=== PATIENT | female | born 1940 | race Caucasian/White ===

== ENCOUNTER 2020-10-22 09:07 | Inpatient (IN) | payer OTHER ==
[~2020-10-22] VITALS: Ht 167.6 cm; Wt 83.0 kg
[2020-10-22 09:17] VITALS: BP 112/78
[2020-10-22] MEDS ORDERED: NORVASC 2.5 MG2.5 M1 GT (09:33)
[2020-10-22] MEDS ORDERED: LASIX 40 MG TAB40 MG (09:34)
[2020-10-22] MEDS ORDERED: ELIQUIS5 MG PO (09:34)
[2020-10-22] MEDS ORDERED: COZAAR 25 MG TA25 M2 PO (09:35)
[2020-10-22] MEDS ORDERED: DESYREL150 MG PO (09:35)
[2020-10-22] MEDS ORDERED: ASA81BEC PO (09:35)
[2020-10-22] MEDS ORDERED: LIPITOR 20 MG T20 M1 PO (09:35)
[2020-10-22] MEDS ORDERED: TYLENOL325 MG PO (09:36)
[2020-10-22] MEDS ORDERED: LEVEMIR100 UNIT/2 SUBQ (09:36)
[2020-10-22 10:58] LABS: ABSOLUTE NEUTROPHILS 10.8 thou/uL (1.4-8.2); BASOPHILS 0.1 % (0.0-2.0); EOSINOPHILS 0.6 % (0.0-3.0); HEMATOCRIT 39.9 % (37.0-47.0); HEMOGLOBIN 12.8 gm/dL (12.0-15.0); LYMPHOCYTES 7.6 % (24.0-44.0); MCH 27.8 pg (26.0-34.0); MCHC 32.1 g/dL (28.0-37.0); MCV 86.8 fL (80.0-100.0); MONOCYTES 5.9 % (1.0-8.0); PLATELET COUNT 167 thou/uL (150-400); POLYS 85.8 % (36.0-66.0); RDW 13.1 % (10.5-14.5); WBC 12.6 thou/uL (4.0-11.0)
[2020-10-22 11:04] LABS: CALCIUM 9.5 mg/dL (8.5-10.1); CREATININE 1.4 mg/dL (0.6-1.0); POTASSIUM 3.9 mmol/L (3.5-5.1)
[2020-10-22 11:10] LABS: ALBUMIN 3.4 g/dL (3.4-5.0); TOTAL BILIRUBIN 0.7 mg/dL (0.2-1.0); TOTAL PROTEIN 7.4 g/dL (6.4-8.2)
[2020-10-22] MEDS ORDERED: NOVOLOG FL100 UNIT/M SUBQ (11:30)
[2020-10-22 12:40] LABS: URINE BILIRUBIN NEGATIVE (Negative); URINE BLOOD 1+ (Negative); URINE CLARITY CLEAR; URINE COLOR YELLOW; URINE GLUCOSE-RANDOM* NEGATIVE (Negative); URINE KETONES NEGATIVE (Negative); URINE LEUKOCYTES-REFLEX NEGATIVE (Negative); URINE NITRITE-REFLEX NEGATIVE (Negative); URINE PROTEIN (DIPSTICK) NEGATIVE (Negative); URINE UROBILINOGEN 0.2 E.U./dl (0.2-1.0)
--- NOTE | 2020-10-22 12:46 | EKG ---
[place] [address] [address] [facility] [employer] [place] [address] ELECTROCARDIOGRAM REPORT Name: CHAD ESPINOZA Room #: 170-15 ADM IN M.R.#: [id number] Admission: 10/22/20 Attend Phys: Stanley Brumfield MD Discharge: Date of : 39 Report #: [id number] [facility] ED Test Date: 2020-10-22 Test Time: 12:12:56 Pat Name: CHAD ESPINOZA Department: Room: 170 Gender: F Network Systems Analyst: jarret : 1940 Requested By: Arian Alvarez Order Number: [id number] MD: Vitor Szymanski Measurements Intervals [place]acho Rate: 95 P: 41 SD: 189 QRS: -43 QRSD: 95 T: 158 QT: 364 QTc: 458 Interpretive Statements Sinus rhythm Left axis deviation Low voltage, precordial leads Probable anteroseptal infarct, old Nonspecific T abnormalities, lateral leads No previous ECG available for comparison Electronically Signed On 10-22-2020 12:46:31 NEEDLE FELT MAKING MACHINE OPERATOR by Vitor Szymanski [email or web address] <ELECTRONICALLY SIGNED> By: Vitor Szymanski MD, [facility] 10/22/20 1246 1212 11 Vitor Szymanski MD, FAC /EPI
[2020-10-22 12:55] LABS: CRYSTALS None Seen /LPF (None Seen); HYALINE CASTS 0-3 Few /LPF (None Seen); SQUAMOUS 0-3 Few /LPF (0-3)
[2020-10-22 12:57] LABS: BACTERIA-REFLEX 1-9 Few /HPF (None Seen); URINE RBC 3-10 Few /HPF (0-2); URINE WBC-REFLEX None Seen /HPF (0-5)
[2020-10-22 14:08] LABS: FOLIC ACID 19.9 ng/mL (8.6-58.9)
--- NOTE | 2020-10-22 14:55 | NUR ---
80-year-old female who was brought to [facility] via EMS status post fall. Patient is alert to self, history with advanced dementia. Daughter at bedside provided LASTING ROOM MACHINE OPERATOR with hospitalist group Per daughter patient with past medical history known for A. fib, hypertension, hyperlipidemia, CAD status post stent, history of vascular dementia history of CVAs, history of retinopathy. Daughter reports patient fell out of bed last night. Daughter reports patient has been complaining of left hip pain, unable to walk. Bilateral hip x-ray reveals: "Acute subcapital left femoral neck fracture". Daughter Candy Abreu is listed as a contact with phone number is [phone]. Patient was admitted for Left Hip Fracture where Dr. Johnson has been consulted. NOTE: patient has a history of multiple strokes with right sided weakness. Along with, Acute on chronic renal failure, history of A-Fib, HTN, Diabetes, Elevated LFT's, CHF, CAD status post cardiac stent, dementia, GI/DVT prophylaxis and per daughter patient lives daughter and is a FULL CODE. Attempted to speak with daughter at [phone] to no avail as number went directly to voicemail. CM will follow for discharge needs.
[2020-10-22 18:23] VITALS: BP 123/57
[2020-10-22 20:00] VITALS: BP 115/54
[2020-10-22 21:15] VITALS: BP 154/66
--- NOTE | 2020-10-23 01:00 | NUR ---
PT ADMITTED WITH L HIP FRACTURE. SHE IS ALERT TO SELF, SOME DELAY IN ANSWERING QUESTIONS. PT WITH SOME EXTREME ANXIETY AND PAIN. FENTANYL GIVEN WELL IVF STARTED HONG IN PLACE. PT IS NPO FOR SURGERY IN THE AM..
[2020-10-23 06:09] LABS: ABSOLUTE NEUTROPHILS 6.4 thou/uL (1.4-8.2); BASOPHILS 0.1 % (0.0-2.0); EOSINOPHILS 3.8 % (0.0-3.0); HEMATOCRIT 35.7 % (37.0-47.0); HEMOGLOBIN 11.4 gm/dL (12.0-15.0); MCH 28.2 pg (26.0-34.0); MCV 88.1 fL (80.0-100.0); MONOCYTES 5.4 % (1.0-8.0); PLATELET COUNT 142 thou/uL (150-400); POLYS 78.7 % (36.0-66.0); RBC 4.05 mil/uL (4.20-5.00); RDW 13.1 % (10.5-14.5); WBC 8.1 thou/uL (4.0-11.0)
[2020-10-23 06:29] LABS: CALCIUM 8.6 mg/dL (8.5-10.1); MAGNESIUM 1.7 mg/dL (1.8-2.4); POTASSIUM 3.9 mmol/L (3.5-5.1)
[2020-10-23 08:44] VITALS: BP 155/73
--- NOTE | 2020-10-23 09:02 | NUR ---
ASSUMED CARE OF PATIENT AT 0645 PT ALERT BUT IN PAIN GIVEN PRN IV PAIN MED AT THIS TIME 0903. PT REMAINS NPO FOR LEFT HIP FRACTURE. IV FLUIDS INFUSING ORDERED.
[2020-10-23 17:43] VITALS: BP 123/63
[2020-10-23 20:38] VITALS: BP 126/51
[2020-10-24 03:30] VITALS: BP 129/44
--- NOTE | 2020-10-24 04:30 | NUR ---
PT HAS ALOT OF ANXIETY EXARCEBATED BY FORGETFULNESS. LOTS OF ASSURANCE PROVIDED. GETTING TYLENOL AND FENTANYL IVP FOR PAIN. PT REFUSES ANY SNACKS OFFERED, SHE IS DRINKING WATER AND TAKES MEDS WITH NO DIFFICULTIES.L HIP WITH BULK DRSG WELL ICE DOT. SCDS TO BLE.LEFT FOOT WITH GOOD CSM.PT ASSISTED TO REPOSITION EVERY SO OFTEN WHILE AWAKE. VSS. AFEBRILE. OXYGEN 11/25-2L PLACED FOR COMFORT BUT MOSTLY SHE WILL NOT KEEP IT ON.FALL PREC IN PLACE.CALL LIGHT WITHIN REACH.
[2020-10-24 05:59] LABS: HEMATOCRIT 26.9 % (37.0-47.0); MCH 28.7 pg (26.0-34.0); MCHC 32.4 g/dL (28.0-37.0); MCV 88.5 fL (80.0-100.0); RBC 3.04 mil/uL (4.20-5.00); RDW 13.4 % (10.5-14.5); WBC 8.3 thou/uL (4.0-11.0)
[2020-10-24 06:00] LABS: CALCIUM 7.7 mg/dL (8.5-10.1); CREATININE 1.3 mg/dL (0.6-1.0); POTASSIUM 4.2 mmol/L (3.5-5.1)
[2020-10-24 06:10] LABS: HEMOGLOBIN 8.7 gm/dL (12.0-15.0)
[2020-10-24 08:08] VITALS: BP 137/41
--- NOTE | 2020-10-24 15:04 | NUR ---
ON-GOING ASSESSMENT: MARIZOL REVIEWED CHART AND SPOKE WITH PTS DAUGHTER JAKI WHO SHE LIVES WITH. SHE REPORTS THAT PT HAS BEEN TO [facility] THE [facility]. SHE REPORTS PT RECEIVED BETTER CARE AT [facility] [place] AND THEY PREFER SHE GO THERE IF NEEDING SNF AND REQUEST REFERRAL TO BE SENT. CM FAXED REFERRAL. DAUGHTER ALSO REPORTS STARTING 10/25 THAT PT WILL NO LONGER HAVE [facility] AND WILL HAVE [facility] POLICY#[id number]. MARIZOL NOTIFIED LIASON AT [facility] OF THIS CHANGE AND THEY ACCEPT [facility]. SHE THINKS THERE IS STILL A WAIVER WHERE THEY WOULD NOT HAVE TO RECEIVE AUTH PRIOR TO ACCEPTING PT. PT HAD NEGATIVE COVID TEST ON 10/22. AWAITING FURTHER INPUT FROM [facility] AT THIS TIME. Luis HAS ALSO BEEN CONSULTED TO SEE PT. WILL AWAIT FURTHER INPUT FROM Luis AND [facility].
--- NOTE | 2020-10-24 15:31 | NUR ---
SPOKE WITH LUZ IN ADM AT [facility] SHE CAN ACCEPT BUT WILL NOT HAVE A BED TIL EARLY NEXT WEEK SHE WILL F/U WITH ME ON WEDNESDAY.
--- NOTE | 2020-10-24 15:42 | NUR ---
ON-GOING ASSESSMENT: CM REVIEWED CHART. [facility] HAS BEEN CONSULTED TO SEE PATIENT AND ARE EVALUATING. PT IS IN PAIN AND UNABLE TO PARTICIPATE MUCH WITH THERAPY AND [facility] STATING THEY WILL FOLLOW UP WITH HER TOMORROW BUT UNSURE SHE WILL BE APPROPRIATE FOR [facility]. CM SPOKE WITH DAUGHTER ABOUT POSSIBLE NEED FOR SNF OPTION AND THEY PREFER [facility]. [facility] RECEIVED REFERRAL AND STATING CLINICALLY THEY HAVE ACCEPTED HER BUT LIKELY WILL NOT HAVE A BED UNTIL NEXT WEEK AND ANTOINETTE ONE UNTIL THEY CHECK BED STATUS ON WEDNESDAY. CM NOTIFIED PTS DAUGHTER AND ALSO PROVIDED HER WITH A SNF LIST OF OTHER OPTIONS. DAUGHTER STATING IF SHE CANNOT GO TO [facility] SHE REALLY PREFERS [facility] SINCE THEY HAVE BEEN THERE BEFORE BUT SHE WILL REVIEW SNF LIST. CM WILL CONTINUE TO FOLLOW.
[2020-10-24 16:12] VITALS: BP 144/40
[2020-10-24 19:34] VITALS: BP 157/65
--- NOTE | 2020-10-25 03:06 | NUR ---
ASSUMED CARE OF PT AT 1900. PT IS A/O X1 AND IS UP WITH ASSISTANCE TO THE BSC. PT C/O SEVERE PAIN TO LEFT HIP. SCREAMS OUT AND IS VERY RESTLESS. RATES PAIN A 10. DRSG TO LEFT HIP CHANGED THIS EVENING PT HAD STARTED TO REMOVE THE DRSG AND IT WAS NOT SECURED TO THE LEG. AT THIS TIME IT IS C/D/I. PT IS CONFUSED AND HAS ON MULTIPLE OCCASIONS ASKED TO BE PUT BACK INTO HER OLD ROOM. EDUCATED PT TO PLACE AND SITUATION. PAIN MEDICATION GIVEN PRESCRIBED. PILLOW PLACED BETWEEN LEGS PT TRIES CROSSING HER LEGS. AT THIS TIME PT IS LYING IN HER BED AND APPEARS TO BE SLEEPING. FALL PRECAUTIONS IMPLEMENTED. CALL LIGHT IS WITHIN REACH.
[2020-10-25 05:54] LABS: HEMATOCRIT 24.7 % (37.0-47.0); HEMOGLOBIN 8.1 gm/dL (12.0-15.0); MCH 28.5 pg (26.0-34.0); MCHC 32.7 g/dL (28.0-37.0); RBC 2.84 mil/uL (4.20-5.00); RDW 13.3 % (10.5-14.5); WBC 7.4 thou/uL (4.0-11.0)
[2020-10-25 08:50] VITALS: BP 135/66
[2020-10-25 16:45] VITALS: BP 123/55
--- NOTE | 2020-10-25 18:30 | NUR ---
PT ASSESSED AT START OF SHIFT. PT PAIN IS DOING BETTER. TAKING EXTRA STRENGTH TYLENOL. MAX ASSIST W/ THERAPY TO TRANSFER TO CHAIR BUT SHE DID HELP SOME. MENTATION CLEARED MORE THROUGHOUT THE DAY. ATE AND FED SELF. INCONTINENT OF URINE. DTR IN TO VISIT.
[2020-10-25 19:14] VITALS: BP 102/38
[2020-10-26 03:49] VITALS: BP 118/50
[2020-10-26 04:46] LABS: HEMATOCRIT 24.2 % (37.0-47.0); HEMOGLOBIN 7.8 gm/dL (12.0-15.0); MCH 28.6 pg (26.0-34.0); MCHC 32.3 g/dL (28.0-37.0); MCV 88.4 fL (80.0-100.0); RBC 2.74 mil/uL (4.20-5.00); RDW 13.6 % (10.5-14.5); WBC 7.6 thou/uL (4.0-11.0)
--- NOTE | 2020-10-26 05:15 | NUR ---
ASSUMED PT CARE FROM ESTEFANY (DAY RN). PT IS ALERT TO SELF. PT HAS MOMENTS OF CONFUSION. PT IS ON ROOM AIR. WHEN ASKING WHAT THE PTS PAIN LEVEL IS SHE STATES 10. PT IS INCONTINENT. PT YELLS IN PAIN WHEN IN BED. SCHEDULED MEDICATION IS TOLERATED. IV PAIN MEDICATION ADMINISTERED. PT DOES NOT CALL OUT APPROPRIATELY. PT DRESSING TO HER HIP IS C/D/I. WILL CONTINUE TO MONITOR.
[2020-10-26 08:19] VITALS: BP 122/76
[2020-10-26 15:59] VITALS: BP 146/56
--- NOTE | 2020-10-26 19:51 | NUR ---
PT CARE ASSUMED AT 0700. A&Ox4 WITH EPISODES OF CONFUSION. SCHEDULED TYLENOL ON BOARD. DEMNETIA HISTORY. DRESSING DRY AND INTACT ON L. HIP. SCD'S/TEDHOSES IN PLACE. MAX ASSIST FROM BED TO CHAIR. UP IN THE RECLINER MOST OF THE DAY. ACHS WITH LOW SLIDING SCALE ON BOARD. PENDING DC TO [facility] ON WEDNESDAY. PT IS A SETUP FOR ALL MEALS. FALL PROTOCOL IN PLACE. CALL LIGHT IN REACH. WILL CONTINUE TO MONITOR.
[2020-10-26 20:43] VITALS: BP 162/64
--- NOTE | 2020-10-27 00:32 | NUR ---
PT C/O PAIN ON HER L HI,MANAGED WITH MED.DRSG ON HER L HIP WITH DRY SEROUSANGUINEOUS DRAINAGE.INCISION CLEANED AND DRSG CHANGE.BRUSING NOTED AROUND THE INCISION AREA.PT CONFUSED YELLS OUT FOR HELP.PT ENCOURAGED TO USE HER CALL LIGHT.PT REPOSITIONED WHILE IN BED.PT MAX ASSIST,BEDPAN IN USE.PT SLEEPING ON HER BED AT THIS TIME.CALL LIGHT WITHIN REACH.
[2020-10-27 08:10] VITALS: BP 157/90
[2020-10-27 15:35] VITALS: BP 156/60
--- NOTE | 2020-10-27 19:35 | NUR ---
PATIENT CONT TO HAVE SEVERE PAIN AT TIMES. NOT EASILY CONTROLLED. PT REASSURED AND THOUGHT RELAXATION TECHNIQUES. NOW SLEEPING. WILL CONT WITH PLAN OF CARE.
[2020-10-27 20:45] VITALS: BP 147/56
--- NOTE | 2020-10-28 05:54 | NUR ---
PT LYING IN BED. XTRA STRENGHT TYLENOL PROVIDING PAIN RELIEF. EXT FEMALE CATH WORKING QUITE WELL. RESTING COMFORTABLY. NO NEEDS VOICED. CALL LIGHT WITHIN REACH. FREQUENT OBSERVATION.
[2020-10-28 06:14] LABS: CALCIUM 8.4 mg/dL (8.5-10.1); CREATININE 0.8 mg/dL (0.6-1.0); MAGNESIUM 1.7 mg/dL (1.8-2.4); PHOSPHORUS 2.3 mg/dL (2.5-4.9); POTASSIUM 3.9 mmol/L (3.5-5.1)
[2020-10-28 07:55] VITALS: BP 148/75
[2020-10-28 08:31] LABS: HEMOGLOBIN 8.5 gm/dL (12.0-15.0); MCH 28.9 pg (26.0-34.0); MCHC 32.7 g/dL (28.0-37.0); MCV 88.4 fL (80.0-100.0); RBC 2.94 mil/uL (4.20-5.00); RDW 13.5 % (10.5-14.5); WBC 5.6 thou/uL (4.0-11.0)
--- NOTE | 2020-10-28 09:26 | NUR ---
ON-GOING ASSESSMENT: CM REVIEWED CHART. [facility] STATED PT IS MORE APPROPRIATE FOR SNF. CM SPOKE WITH PATIENTS DAUGHTER JAKI AND THEY [facility]. CM REACHED OUT TO LIASON AT [facility] TO CHECK BED AVAILABILITY TODAY AND AWAITING A CALL BACK AT THIS TIME.
--- NOTE | 2020-10-28 11:32 | NUR ---
Assumed care of pt at 0700. Pt confused but follow commands. C/o pain and nausea. Prn meds administered. Dressing c/d/i. Family at bedside. Awaiting placement. Call light within reach. Will continue to monitor.
[2020-10-28 16:00] VITALS: BP 125/49
[2020-10-28 19:19] VITALS: BP 130/48
--- NOTE | 2020-10-29 00:05 | NUR ---
PT C/O PAIN AT START OF SHIFT,MANAGED WITH MED.DRSG TO HER L HIP CHANGED,SMALL DRAINAGE NOTED.PT REPOSITIONED WHILE IN BED.PT REF EXTERNAL CATH AT THIS TIME,REMOVED PER PT'S REQUEST.PT RESTING ON HER BED AT THIS TIME.CALL LIGHT WITHIN REACH.
[2020-10-29 04:57] VITALS: BP 121/41
[2020-10-29 07:55] VITALS: BP 143/58
--- NOTE | 2020-10-29 09:29 | NUR ---
ON-GOING ASSESSMENT: CM FAXED UPDATED PT/OT/PROGRESS NOTES/MEDS TO [facility] AND AWAITING AUTH FOR SNF AT THIS TIME.
--- NOTE | 2020-10-29 09:52 | NUR ---
Assumed care of pt at 0700. Pt confused but follows commands. Dressing c/d/i. Pain controlled. Possible discharge to skilled facility today. Fall precautions in place. Call light within reach. Will continue to monitor.
--- NOTE | 2020-10-29 13:42 | O ---
[facility] [place] [address] OPERATIVE REPORT Name: CHAD ESPINOZA Room #: 446-P ADM IN M.R.#: [id number] Admission: 10/22/20 Attend Phys: Stanley Brumfield MD Discharge: Date of : 39 Report #: [id number] THIS REPORT FOR: cc: Jenaro Scanlon MD, Usman MD McCabe,Jerald Díaz MD ~ DATE OF SERVICE: 10/23/2020 SERVICE: Orthopedics. FACILITY: [facility]. SURGEON: Jerald Johnson MD REFRIGERATION SUPERVISOR: None. PREOPERATIVE DIAGNOSIS: Valgus impacted left femoral neck fracture. POSTOPERATIVE DIAGNOSIS: Valgus impacted left femoral neck fracture. PROCEDURE: Closed reduction and percutaneous pinning, left femoral neck fracture. COMPLICATIONS: None. DRAINS: None. SPECIMENS: None. ANESTHESIA: General with LMA. FINDINGS: Synthes 80 mm cannulated screws x 3. HISTORY: The patient is an 80-year-old female who sustained a same level fall and was brought to the Emergency Room where she was diagnosed with a valgus impacted femoral neck fracture. It had an appearance consistent with a structure stable injury pattern and was indicated for a screw fixation. Risks, benefits, alternatives, and indication of surgery discussed with her and her daughter who gave full informed consent. Risks include but not limited to pain, bleeding, infection, injury to nerves or blood vessels, malunion, nonunion, need for further surgery as well as complications related to anesthesia up to and including mortality. PROCEDURE IN DETAIL: After left lower extremity was correctly identified in the preoperative holding area as the operative extremity, the patient was taken to [facility] [address] [place] [address] OPERATIVE REPORT Name: CHAD ESPINOZA Room #: 446-P ADM IN M.R.#: [id number] Admission: 10/22/20 Attend Phys: Stanley Brumfield MD Discharge: Date of : 39 Report #: [id number] the operating room where general anesthesia was induced without complication. She was padded appropriately. Prophylactic antibiotics were administered at appropriate time. Left leg was prepped and draped in standard sterile fashion. Time-out procedure was performed. We had identified the proper AP and lateral x-rays prior to prepping and draping under C-arm fluoroscopy. A 1-inch incision was made based over the lateral aspect of the hip. Dissection was taken down to the femur and then using C-arm on multiple planes, the screws were placed in the femoral neck. The first was placed along the inferior cortex. A second along the posterior cortex and then the third along the anterior cortex. The screws were placed in a divergent pattern in an inverted triangle fashion. Overall, she had good bone quality and good screw purchase. The inferior and posterior screws utilized a short threaded screws to allow for compression across the fracture and then the more proximal screw utilized a long thread screw configuration in order to obtain the best bony purchase. Final x-rays were taken. The wound was irrigated and then closed with 0 Vicryl followed by 2-0 Vicryl and ashu. Sterile dressing was applied. The patient was awakened from anesthesia and taken to recovery room in stable condition. There were no complications. All counts were correct. <ELECTRONICALLY SIGNED> By: Jerald Johnson MD 10/29/20 1342 1607 1805 Jerald Johnson MD /nt
[2020-10-29 16:03] VITALS: BP 133/52
[2020-10-29 20:09] VITALS: BP 114/59
--- NOTE | 2020-10-30 03:36 | NUR ---
ASSUMED PT CARE FROM ZAKIYA (DAY RN). PT IS ALERT TO SELF AND SITUATION. PT IS CONFUSED. PT HAS A RIGHT FORARM SALINE LOCKED AND COBANDED. PT HAS A DRESSING ON HER LEFT HIP. DRESSING IS C/D/I. PT STATES THAT SHE IS NOT IN PAIN UNLESS MOVED. I ADMINISTERED ORAL PAIN MEDICATION. PT TOLERATES ORAL MEDICATION FINE. PT IS INCONTINENT. AT THE BEGINING OF THE SHIFT PT HAD WIC IN PLACE BUT REMOVED IT AND SAID IT HURTS SO SHE WOULD PREFER TO NOT USE IT. PT DOES NOT CALL OUT APPROPRIATELTY. FREQUENT CHECKS PERFORMED. WILL CONTINUE TO MONITOR.
[2020-10-30 07:35] VITALS: BP 140/55
--- NOTE | 2020-10-30 09:07 | NUR ---
ASSUMED CARE AT 0700. PT COMPLAINS OF PAIN AND PAIN MEDICATION WAS GIVEN. PT WAS SLEEPING AFTER GIVEN PAIN MEDICATION. IV IS INTACT AND SHOWS NO SIGNS OF REDNESS OR SWELLING. ICE PACK APPLIED ON LEFT HIP. BRITANY/SCD HOSE ARE IN PLACE. SOT ABD. BULDGE IN THE MIDDLE OF ABD. BRUSIES ON LEGS. LIDOCAINE PATCH IS APPLIED TO LEFT LEG. BSG WNL. VSS. DRESSING ON LEFT HIP IS DRY, CLEAN, AND INTACT. IV ON RIGHT FA IS WRAPPED DUE TO PT PICK ON THE IV. INCONTINENT THEREFORE I HAVE APPLIED FEMALE EXTERNAL CATHETHER TO PT AND EDUCATE PT ON THE IMPORTANCE TO LEAVE IT ALONE. PT IS A &O X1.
--- NOTE | 2020-10-30 09:36 | NUR ---
ON-GOING ASSESSMENT: CM REVIEWED CHART. MARIZOL REACHED OUT TO LUZ CORNEJO AT [facility] WHO REPORTS SHE CALLED INSURANCE THIS AM AND IT IS STILL PENDING FOR SNF. CM WILL AWAIT FURTHER INPUT FROM Pedro [facility] AT THIS TIME. DISCHARGE TODAY PENDING INSURANCE AUTH.
[2020-10-30 15:40] VITALS: BP 134/58
[2020-10-30 21:01] VITALS: BP 133/41
--- NOTE | 2020-10-31 05:29 | NUR ---
PT C/O PAIN TO HER L HIP AT START OF SHIFT,MANAGED WITH MED.PT RECEIVED MAG CITRATE YESTERDAY,NO BM NOTED SO FAR.DRSG TO HER L HIP CHANGED,BRUISING NOTED AROUND THE SITE.PT REPOSITIONED IN BED PER HER REQUEST.PT ABLE TO MAKE HER NEEDS KNOWN.CALL LIGHT WITHIN REACH.
[2020-10-31 08:43] VITALS: BP 134/57
--- NOTE | 2020-10-31 09:58 | NUR ---
assumed care at 0700. pt is a&o to self. pt has dressing left hip and is dry, clean, intact. right forearm on IV is intact and shows no signs of redness or swelling. achs. incontinent and has a external catheter on for her. it is suctioning very well. Up with therapy. fall precaution. call light within reach. OOB to chair during the day. BRITANY hose and scd hose are in place. ice pack on left hip along with lidocaine patch on left leg. pt complains of pain and was given hydrocodone. will continue to monitor.
--- NOTE | 2020-10-31 11:53 | NUR ---
ON-GOING ASSESSMENT: CM REVIEWED CHART AND SPOKE WITH LIASON FROM [facility], WHO REPORTS AUTH IS STILL SHOWING PENDING. CM FAXED UPDATED PT/OT AND PROGRESS NOTES. AWAITING AUTH AT THIS TIME.
[2020-10-31 16:08] VITALS: BP 147/54
[2020-10-31 19:34] VITALS: BP 122/41
[2020-11-01 05:41] VITALS: BP 132/43
--- NOTE | 2020-11-01 06:49 | NUR ---
10-31-19 CARE TRANSFERRED 1899. PT AAOX1, VSS, RR EVEN AND NONLABORED ON RA. PT LUNG SOUNDS CLEAR AND HT RR. PT RACIV SALINE LOCK, CLEAN DRY AND PATENT. PT REPORTS PAIN, MANAGED WITH MEDICATION. PT HAD LARGE BM THIS AM, SOMEWHAT FORMED. ZERO S/S OF ACUTE DISTRESS NOTED, PT WILL CONTINUE TO BE MONITOR.
[2020-11-01 07:45] VITALS: BP 140/52
--- NOTE | 2020-11-01 08:14 | NUR ---
ON-GOING ASSESSMENT: LATE ENTRY FROM 10/31/20 : PT WAS HAVING TROUBLE WITH CONSTIPATION AND COMPLAINING OF PAIN. FLEETS ENEMA WAS ORDERED WITH LITTLE RELIEF. MARIZOL RECEIVED A CALL FROM LIASON AT [facility] AT 1630 REPORTING SHE GOT AUTH FOR PATIENT. MARIZOL NOTIFIED ATTENDING OF AUTH AND HE STATED PT WILL DISCHARGE ON 11/01/20. MARIZOL NOTIFIED LIASON AT [facility] AND TRANSPORTATION HAS BEEN ARRANGED FOR 1100. MARIZOL NOTIFIED PT AND PTS DAUGHTER WHO IS AGREEABLE WITH PLAN. CHART COPY WAS ALREADY ORDERED AND DRESSMAKER GARMENT FITTER NOTIFIED TO UPDATE IT. MARIZOL PROVIDED BEDSIDE RN WITH NUMBER FOR REPORT. AWAITING D.C ORDERS AT THIS TIME.
[2020-11-01] MEDS ORDERED: NORVASC5 MG PO (08:22)
[2020-11-01 08:29] VITALS: BP 140/52
--- NOTE | 2020-11-01 10:19 | NUR ---
Assumed care of pt at 0700. Pt a&ox1. Does not appear in pain. Dressing c/d/i. Q2h turn. Patient will discharge to SNF at 1100. Report given to Marli VAZQUEZ. Fall precautions in place. Will continue to lien.
== END 2020-11-01 11:29 | DRG 480 ==
LOC: ER 09:07 → EROBS 11:53 → 4S 11:53
PROVIDERS: Emergency Medicine; Nurse Practitioner; Orthopaedic Surgery Sports Medicine; ADMIT Internal Medicine; ATTEND Internal Medicine
PROC: 0QS734Z Reposition Left Upper Femur with Internal Fixation Device, Percutaneous Approach (ICD-10-PCS; principal; 2020-10-23)
DX: S72.012A Unspecified intracapsular fracture of left femur, initial encounter for closed fracture (principal); G93.41 Metabolic encephalopathy; N17.0 Acute kidney failure with tubular necrosis; I69.351 Hemiplegia and hemiparesis following cerebral infarction affecting right dominant side; I13.0 Hypertensive heart and chronic kidney disease with heart failure and stage 1 through stage 4 chronic kidney disease, or unspecified chronic kidney disease; E78.5 Hyperlipidemia, unspecified; F03.90 Unspecified dementia, unspecified severity, without behavioral disturbance, psychotic disturbance, mood disturbance, and anxiety; N18.9 Chronic kidney disease, unspecified; E11.319 Type 2 diabetes mellitus with unspecified diabetic retinopathy without macular edema; I25.10 Atherosclerotic heart disease of native coronary artery without angina pectoris; I50.9 Heart failure, unspecified; K59.00 Constipation, unspecified; G47.00 Insomnia, unspecified; R63.4 Abnormal weight loss; I48.0 Paroxysmal atrial fibrillation; E11.22 Type 2 diabetes mellitus with diabetic chronic kidney disease; Z20.822 Contact with and (suspected) exposure to COVID-19; W06.XXXA Fall from bed, initial encounter; Y93.89 Activity, other specified; Y92.89 Other specified places as the place of occurrence of the external cause; Y99.8 Other external cause status; Z95.5 Presence of coronary angioplasty implant and graft; I25.2 Old myocardial infarction; Z90.49 Acquired absence of other specified parts of digestive tract; Z90.710 Acquired absence of both cervix and uterus; Z88.8 Allergy status to other drugs, medicaments and biological substances; Z47.89 Encounter for other orthopedic aftercare; Z68.29 Body mass index [BMI] 29.0-29.9, adult
CPT/HCPCS: 10195; 50010; 50101; 50386; 51412; 51538; 52304; 53400; 56524; 57092; 62110; 62900; 70005